=== PATIENT | female | born 1940 | race African-American/Black ===

== ENCOUNTER 2025-01-15 09:28 | Emergency (ER) | payer MEDICARE, OTHER ==
[~2025-01-15] VITALS: Ht 167.6 cm; Wt 46.0 kg
[2025-01-15 09:47] VITALS: O2SAT 99
[2025-01-15 11:01] LABS: BASOPHILS % 0.4 % (0.0-2.0); EOSINOPHILS % 1.7 % (0.0-5.0); HEMATOCRIT. 41.6 % (36.0-48.0); HEMOGLOBIN. 13.9 g/dL (12.0-16.0); LYMPHOCYTES % 24.4 % (20.0-50.0); MEAN PLATELET VOLUME 9.3 fl (7.4-10.4); MONOCYTES % 9.2 % (2.0-8.0); NEUTROPHILS % 64.3 % (40.0-76.0); PLATELET 173 x1000/uL (130-400); RED BLOOD CELL COUNT 4.53 mill/uL (4.2-5.4); RED CELL DISTRIBUTION WIDTH 13.5 % (11.6-14.6)
[2025-01-15 11:16] LABS: CREATININE 0.9 mg/dL (0.6-1.0); TROPONIN I HIGH SENSITIVITY 6 ng/L (3.0-34); UREA NITROGEN BLOOD 11 mg/dL (9-23)
[2025-01-15 13:24] VITALS: BP 137/65; PULSE 72; RESP 19; TEMP 36.8; O2SAT 99
== END 2025-01-15 17:07 | disposition home or self-care (01) ==
LOC: ER 09:28
DX: M25.512 Pain in left shoulder (principal); M54.6 Pain in thoracic spine; I10 Essential (primary) hypertension; E11.9 Type 2 diabetes mellitus without complications; Z86.73 Personal history of transient ischemic attack (TIA), and cerebral infarction without residual deficits; Z79.899 Other long term (current) drug therapy
CPT/HCPCS: 36415; 71045; 80048; 83880; 84484; 85025; 93005; 99284